=== PATIENT | male | born 1945 | race Caucasian/White ===

== ENCOUNTER → 2016-04-13 08:35 | Outpatient (CLI) | payer MEDICARE, OTHER ==
[2015-12-25 08:05] VITALS: BMI 27.4
[~2016-04-13 08:35] MED LIST: BAYER CHEWABLE81 MG PO; CALAN SR240 MG PO; PLAVIX75 MG PO; VASOTEC10 MG PO
== END | disposition home or self-care (01) ==
LOC: D.US 08:35
DX: I70.219 Atherosclerosis of native arteries of extremities with intermittent claudication, unspecified extremity (principal); I25.10 Atherosclerotic heart disease of native coronary artery without angina pectoris

== ENCOUNTER → 2017-03-07 11:53 | Outpatient (CLI) | payer MEDICARE, OTHER ==
[2015-12-25 08:05] VITALS: BMI 27.4
== END | disposition home or self-care (01) ==
LOC: D.CT 11:53
DX: Z91.81 History of falling (principal)

== ENCOUNTER 2017-04-21 11:38 | Inpatient (IN) | payer MEDICARE, OTHER ==
[~2017-04-21] VITALS: Ht 170.2 cm; Wt 74.9 kg
--- NOTE | ~2017-04-21 | DS ---
PATIENT:EFREN MATTA :43 MEDICAL RECORD: [id number] DISCHARGE SUMMARY ADMISSION DATE: 04/21/17 DISCHARGE DATE: 04/23/17 IDENTIFYING DATA: The patient is 71 years old and he was admitted to the hospital on a voluntary basis because of confusion and hallucinations. The patient had been living at home with his family and has a complicated medical history that includes neurologic disease and coronary artery disease. He has recently become quite bizarre having both auditory and visual hallucinations. He sees people. He hears people talking to him. He was initially sedated upon interview and as it turns out, had a low blood pressure. HOSPITAL COURSE: The patient was seen one time for an initial evaluation that was incomplete. He had only been given medications that were listed as home medicines, yet he was hypotensive and sedated indicating very high likelihood that he was not taking his blood pressure medicine and antipsychotic medicine as reported. He was not injured, but they were held and he improved, but the next day, his family felt that this unit was not serving his needs and wanted to take him to [facility] [place]. He was subsequently discharged. DISCHARGE DIAGNOSES: AXIS I: Vascular dementia. AXIS II: None. AXIS III: Coronary artery disease, hypertension, history of neurologic disease, hyperlipidemia, gout, osteoarthritis. AXIS IV: Moderate stressors. AXIS V: Global assessment of functioning is 30. PLAN: At the time of discharge, the patient was not acutely dangerous, but certainly was in need of an evaluation, both medically, neurologically, and psychiatrically. As mentioned above, the family wanted him evaluated in another hospital and he was subsequently discharged. He did not have any evidence of acute or direct dangerousness at the time of discharge. TRANSINT:[id number] Voice Confirmation ID: [id number] DOCUMENT ID: [id number] NATANAEL SCHWARTZ MD at 1304 CC: [id number] DICTATION DATE: 04/26/17 1151 ACCOUNT INFORMATION CLERK: 04/26/17 1210 DIS IN 04/23/17 [place] [id number] [place] [id number]
--- NOTE | ~2017-04-21 | PSY ---
PATIENT NAME:EFREN MATTA MEDICAL RECORD: [id number] : 43 LOCATION:[facility] ADMISSION DATE: 04/21/17 ACCOUNT: [id number] PSYCHIATRIC EVALUATION DATE OF EVALUATION: 04/22/17 IDENTIFYING DATA: The patient is 71 years old and he is admitted to the hospital on a voluntary basis. CHIEF COMPLAINT: Confusion and hallucinations. HISTORY OF PRESENT ILLNESS: The patient lives at home with his family. 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 He recently has been having very bizarre episodes of confusion associated with some auditory and visual hallucinations. He sees bodies. He hears people talking to him. He is difficult to interview. He apparently is sedated from the scheduled medicines that he supposedly has been taking at home. His blood pressure is low. I am going to consult the interactive media marketing director and I am sure he will adjust that, but also I think that the Haldol has made him sedated. I am not able to get much in the way of useful information and keep him awake. I am going to include in my differential the possibility of major depression with psychotic features. PAST MEDICAL HISTORY: Significant for hypertension, coronary artery disease, and Guillain-[place] syndrome. PAST PSYCHIATRIC HISTORY: None. He has never been diagnosed with a dementia or depression. ALLERGIES: Sulfur. CURRENT MEDICATIONS: Vasotec, Plavix, baclofen, Neurontin, melatonin, potassium, Effient, MiraLax, Haldol, aspirin, and Calan. FAMILY HISTORY: Significant for some sort of neurologic disorder in both his parents and a sibling. SOCIAL HISTORY: The patient has been for 50 years. He does have a history of alcohol use, but I do not believe it was abuse. 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 He does have 4 adult children. MENTAL STATUS EXAMINATION: The patient is arousable, but quite sleepy. He denies that he would seek to harm himself or others. He is essentially not interviewable at this point. ASSETS: Supportive family members. LIABILITIES: Limited insight. DIAGNOSTIC IMPRESSION: AXIS I: Vascular dementia. Rule out major depression. AXIS II: None. AXIS III: Coronary artery disease, hypertension, history of neurologic disease, hyperlipidemia, osteoarthritis. AXIS V: Global assessment of functioning is 20. PLAN: At this time, the patient is impaired in a way that is consistent with hypotension and sedation. These are his home medications, which he either was not taking or was not consistently taking and I think that is the problem. I will leave the adjusting of his antihypertensives to Dr. Richardson. I am going to stop his scheduled Haldol. I am going to ask Dr. Marguerite Paige to test him. Included in his differential was the possibility of a psychotic disorder associated with major depression; however, the longitudinal history certainly sounds consistent with a dementing illness. After Dr. Paige test him, I will have a better idea about this. There is certainly also the possibility of an additional neurologic degenerative disease, which we attempt to evaluate and/or refer to another physician. At this point, identifying the problems and having an initial treatment plan is possible, but there certainly are many unanswered questions about this case that is clearly complex and atypical. TRANSINT:[id number] Voice Confirmation ID: [id number] DOCUMENT ID: [id number] NATANAEL SCHWARTZ MD at 1809 CC: [id number] DICTATION DATE: 04/22/17 1038 TERRITORY BUSINESS MANAGER: 04/22/17 1111 ADM IN [facility] [address] [place] [address]
[2017-04-21] MEDS ORDERED: HALDOL5 MG PO (15:03)
[2017-04-21] MEDS ORDERED: MIRALAX17 GM PO (15:05)
[2017-04-21] MEDS ORDERED: EFFIENT10 MG PO (15:06)
[2017-04-21] MEDS ORDERED: KLOR-CON M2020 MEQ PO (15:06)
[2017-04-21] MEDS ORDERED: METROGEL 0.75 %45 GM TOPICAL (15:07)
[2017-04-21] MEDS ORDERED: GABAPENTIN100 MG PO (15:08)
[2017-04-21] MEDS ORDERED: COLACE100 MG PO (15:08)
[2017-04-21] MEDS ORDERED: MELATONIN5 MG PO (15:08)
[2017-04-21] MEDS ORDERED: VOLTAREN100 GM TOPICAL (15:09)
[2017-04-21] MEDS ORDERED: BACLOFEN10 MG PO (15:09)
[2017-04-21] MEDS ORDERED: VASOTEC10 MG PO (15:10)
[2017-04-21] MEDS ORDERED: OMEPRAZOLE20 M1 PO (15:11)
[2017-04-21] MEDS ORDERED: MINERAL OIL25 ML PO (16:40)
[2017-04-21] MEDS ORDERED: VITAMIN B-1100 M1 PO (16:41)
[2017-04-21 16:42] VITALS: BP 131/62; BMI 25.9
[2017-04-21 17:13] LABS: BASOPHILS 0.2 % (0-2); EOSINOPHILS 0.6 % (0-7); HEMATOCRIT 35.2 % (42.0-54.0); HEMOGLOBIN 12.1 g/dL (13.5-17.5); IMMATURE GRANULOCYTES 0.4 % (0-5); LYMPHOCYTES 12.7 % (15-50); MCH 32.4 pg (26.0-34.0); MCHC 34.4 g/dL (31.0-37.0); MCV 94.1 fL (80.0-100.0); MEAN PLATELET VOLUME 9.1 fL (7.4-10.4); MONOCYTES 8.1 % (2-11); RBC 3.74 10x6/uL (4.20-6.10); RDW 13.4 % (11.5-14.5); WBC 9.8 10x3/uL (4.8-10.8)
[2017-04-21 17:32] LABS: PLATELET COUNT 418 10x3/uL (130-400)
[2017-04-21 17:34] LABS: ALBUMIN 3.3 g/dL (3.4-5.0); ANION GAP 15.6 mmol/L (8-16); BILIRUBIN - TOTAL 0.6 mg/dL (0.2-1.3); CALCIUM 9.3 mg/dL (8.5-10.1); CARBON DIOXIDE 21.7 mmol/L (21.0-32.0); CHOL - HDL RATIO 4.4 ratio (2.3-4.9); CREATININE - SERUM 1.2 mg/dL (0.6-1.3); LDL-HDL RATIO 3.1 ratio (1.5-3.5); POTASSIUM - SERUM 4.3 mmol/L (3.5-5.1); PROTEIN - SERUM 7.9 g/dL (6.4-8.2); THYROID STIMULATING HORMONE 1.97 uIU/mL (0.36-3.74)
[2017-04-21 19:55] VITALS: BP 155/75
[2017-04-22 07:52] VITALS: BP 155/79
[2017-04-22 09:52] VITALS: Ht 170.2 cm; Wt 74.9 kg
[2017-04-22 19:15] VITALS: BP 126/58
[2017-04-23 07:00] VITALS: BP 158/78
[2017-04-23 10:02] LABS: APPEARANCE HAZY (CLEAR); BILIRUBIN NEGATIVE (NEGATIVE); COLOR DK YELLOW (YELLOW); GLUCOSE NEGATIVE (NEGATIVE); KETONE NEGATIVE (NEGATIVE); NITRITE NEGATIVE (NEGATIVE); PROTEIN TRACE mg/dL (NEGATIVE); SPECIFIC GRAVITY 1.025 (1.005-1.020); UROBILINOGEN NORMAL (NORMAL)
[2017-04-23 10:05] LABS: BACTERIA MANY /hpf (NONE SEEN); EPITHELIAL CELLS 0-5 /hpf (0-5); GRANULAR CAST OCC /lpf (NONE SEEN); HYALINE CAST OCC /lpf (NONE SEEN); MUCUS >1+ /lpf (NONE SEEN); RED CELLS - URINE OCC /hpf (0-5); WHITE CELLS - URINE 0-5 /hpf (0-5)
[2017-04-23 18:56] VITALS: BP 194/47
[2017-04-24 11:13] LABS: FOLATE (FOLIC ACID) - SERUM 3.1 ng/mL (>3.0)
[2017-04-25 07:30] LABS: RAPID PLASMA REAGIN Non Reactive (Non Reactive)
== END 2017-04-23 19:00 | disposition home or self-care (01) | DRG 884 ==
LOC: D.PSYCH 11:38
PROVIDERS: Psychiatry & Neurology Psychiatry
DX: F01.51 Vascular dementia, unspecified severity, with behavioral disturbance (principal); I95.9 Hypotension, unspecified; M19.90 Unspecified osteoarthritis, unspecified site; E78.5 Hyperlipidemia, unspecified; I25.10 Atherosclerotic heart disease of native coronary artery without angina pectoris; I10 Essential (primary) hypertension; F32.9 Major depressive disorder, single episode, unspecified; Z74.09 Other reduced mobility; K21.9 Gastro-esophageal reflux disease without esophagitis; K59.09 Other constipation